=== PATIENT | female | born 1975 | race Hispanic/Latino ===

== ENCOUNTER 2025-01-28 20:33 | Emergency (ER) | payer SELFPAY ==
[~2025-01-28] VITALS: Ht 165.1 cm; Wt 129.3 kg
--- NOTE | 2025-01-28 21:06 | ERN ---
ED Note History of Present Illness Stated Complaint: BURNING URINATION Chief Complaint: Urinary Frequency Time Seen by MD: 20:36 Time Seen by Midlevel: 20:36 Dictation: The patient is a 44-year-old female with a history of osteoarthritis, anxiety, schizophrenia who presents to the emergency department with complaints of burning urination and frequent urination associated with right flank pain onset 2-3 weeks ago. Patient denies any nausea vomiting or diarrhea. Denies any blood in the urine. Denies any fevers. Allergies: Coded Allergies: ofloxacin (Unverified Allergy, Unknown, 01/28/25) Past Medical History Past Medical History: Anxiety, Bipolar, Schizophrenia Surgical History: None RN Note Reviewed/Agreed w/PFSH: Yes Review of System Dictation Constitutional: Negative for fever,chills, and weight loss Eyes: Negative for injury, pain,redness, and discharge ENT: Negative for injury,pain or swelling Cardiovascular: Negative for chest pain, palpitations, and edema Respiratory: Negative for shortness of breath, cough, and wheezing, Abdomen/GI: Negative for abdominal pain, nausea, vomiting, diarrhea, and constipation Back: Negative for injury and pain : Negative for injury, bleeding and discharge positive for right flank pain, burning urination MS/Extremity: Negative for injury and deformity Skin: Negative for rash, and discoloration Neuro: Negative for headache, weakness, numbness, tingling, and seizure Psych: Negative for suicide ideation, homicidal ideation, and hallucinations Initial Vital Sign VS Vital Signs Date Time Temp Pulse Resp B/P (MAP) Pulse Ox O2 Delivery O2 Flow Rate FiO2 01/28/25 20:35 99.9 101 19 156/87 95 Room Air 0 01/28/25 22:51 21 Physical Exam Dictation Vital Signs reviewed General Appearance: Alert, oriented x 3, no acute distress, well developed, nourished. Head and Face: non-traumatic. Eyes: PERRL, pink conjunctivas, eyelid no trauma, anterior chamber with arcus senilis. Ears: Pinnas intact and no signs of trauma or erythema ear canals clear and no discharge TM no erythema Nose: No discharge, no bleeding. Oropharynx: Mouth normal, tongue pink. pharynx clear,no erythema, tonsils no exudates, no abscesses noted, mucous membrane moist Neck: Supple, non-tender, no thyromegaly, no masses, no JVD, no bruits Breast:Deferred Chest:No tenderness, no crepitus, no paradoxical movement, no retractions Lungs:Clear, well-ventilated, symmetric, no rales, no wheezing, no rhonchi, no stridor, good breath sounds bilaterally Heart: Regular rate, regular rhythm, no murmur, no gallops Vascular: no peripheral edema, Abdomen: Soft, positive bowel sounds, nondistended, no guarding, nontender, no rebound, no masses no hepatomegaly, no splenomegaly, no Jenkins's sign, no hernias. Rectal: Deferred Genital: Deferred Neurological: Normal speech, motor function intact, sensory function intact Musculoskeletal: Neck nontender, full range of motion, back nontender, full range of motion, Extremities: nontender, full range of motion Skin: Color pink, dry, no turgor, no rash, no lacerations, no abrasions, no contusions. Lymphatic: Deferred Results (Laboratory/Radiology) Laboratory/Radiology Laboratory Tests Test 01/28/25 20:56 01/28/25 21:00 White Blood Count 10.7 K/uL (4.8-10.8) Red Blood Count 4.17 MIL/uL (4.00-5.50) Hemoglobin 12.4 g/dL (12.0-16.0) Hematocrit 38.2 % (36-48) Mean Corpuscular Volume 91.6 fL (79-99) Mean Corpuscular Hemoglobin 29.7 pg (27.0-33.0) Mean Corpuscular Hemoglobin Concent 32.5 g/dL (32.0-36.0) Red Cell Distribution Width 13.9 % (11.0-15.5) Platelet Count 385 K/uL (130-400) Mean Platelet Volume 9.7 fL (7.5-10.5) Immature Granulocyte % (Auto) 0.5 % (0-1) Neutrophils (%) (Auto) 70.1 % (40.0-77.0) Lymphocytes (%) (Auto) 21.7 % (21.0-51.0) Monocytes (%) (Auto) 5.5 % (3.0-13.0) Eosinophils (%) (Auto) 1.8 % (0.0-8.0) Basophils (%) (Auto) 0.4 % (0.0-5.0) Neutrophils # (Auto) 7.5 K/uL (1.8-7.7) Lymphocytes # (Auto) 2.3 K/uL (1.0-4.8) Monocytes # (Auto) 0.6 K/uL (0.1-1.0) Eosinophils # (Auto) 0.19 K/uL (0.00-0.70) Basophils # (Auto) 0.04 K/uL (0.00-0.20) Absolute Immature Granulocyte (auto 0.05 K/uL (0-1) Nucleated Red Blood Cells 0.0 % (0.0-0.19) Sodium Level 135 mmol/L (136-145) L Potassium Level 3.8 mmol/L (3.5-5.1) Chloride Level 98 mmol/L (101-111) L Carbon Dioxide Level 26 mmol/L (21-32) Blood Urea Nitrogen 15 mg/dL (7-18) Creatinine 1.4 mg/dL (0.5-1.0) H Glomerular Filtration Rate Calc 47 mL/min (>90) Random Glucose 112 mg/dL (70-105) H Total Calcium 9.4 mg/dL (8.5-10.1) Urine Color COLORLESS (YELLOW) Urine Appearance CLEAR (CLEAR) Urine pH 6.0 (5.0-8.0) Urine Specific [place]ansom 1.004 (1.001-1.031) Urine Protein NEGATIVE mg/dL (NEGATIVE) Urine Glucose (UA) NEGATIVE mg/dL (NEGATIVE) Urine Ketones NEGATIVE mg/dL (NEGATIVE) Urine Occult Blood +- (TRACE) (NEGATIVE) H Urine Nitrate NEGATIVE (NEGATIVE) Urine Bilirubin NEGATIVE mg/dL (NEGATIVE) Urine Urobilinogen 0.2 mg/dL (0.2-1.0) Urine Leukocyte Esterase 75 Mike/uL (NEGATIVE) H Urine RBC 0-1 /HPF (0-1) Urine WBC 11-25 /HPF (0-1) H Urine Squamous Epithelial Cells RARE /HPF (0-2) Urine Bacteria None /HPF (None Seen) Urine HCG, Qualitative NEGATIVE (NEGATIVE) Labs Reviewed?: Yes ED Course ED Course Orders Procedure Category Date Status Time Cbc With Differential LAB 01/28/25 Complete 20:46 ,Urine Test LAB 01/28/25 Complete 20:46 Urinalysis Profile LAB 01/28/25 Complete 20:46 0.9%Nacl 1000ml (Ns PHA 01/28/25 Complete 1000ml) 21:00 Ketorolac PHA 01/28/25 Complete Tromethamine 30mg/Ml 21:00 Basic Metabolic Panel LAB 01/28/25 Complete 20:46 Ct Abdomen/Pelvis W/O CT 01/28/25 Taken Contrast 21:30 Culture Urine CASH 01/28/25 In Process 21:35 Ceftriaxone 1g Vial PHA 01/28/25 Complete (Rocephine 1g Inj) 22:00 Current Medications Medications (Trade) Dose Ordered Sig/Kenneth Route PRN Reason Start Time Stop Time Status Last Admin Dose Admin Ceftriaxone Sodium (ROCEphine 1G INJ) 1 gm ONCE ONCE IVPB 01/28/25 22:00 01/28/25 22:01 DC 01/28/25 21:45 Ketorolac Tromethamine (toRADol) 30 mg ONCE IVP 01/28/25 21:00 01/28/25 23:59 DC 01/28/25 21:13 Sodium Chloride 1,000 ml @ 0 mls/hr ONCE IV 01/28/25 21:00 01/28/25 23:59 DC 01/28/25 21:13 Vital Signs Date Time Temp Pulse Resp B/P (MAP) Pulse Ox O2 Delivery O2 Flow Rate FiO2 01/28/25 22:51 83 17 94/54 96 Room Air* 0 21 01/28/25 20:35 99.9 101 19 156/87 95 Room Air 0 Medical Decision Making MDM The patient is a 44-year-old female with a history of osteoarthritis, anxiety, schizophrenia who presents to the emergency department with complaints of burning urination and frequent urination associated with right flank pain onset 2-3 weeks ago. Patient denies any nausea vomiting or diarrhea. Denies any blood in the urine. Denies any fevers. CBC showed no leukocytosis, no anemia, chemistry showed mild hypochloremia, hyponatremia, creatinine of 1.4, unknown baseline. Urinalysis showed positive leukocyte esterase. Patient was giving a L of fluids in a g of Rocephin in ER. Due to patient having right flank pain patient received a CT abdomen and pelvis to rule out kidney stones. Pending CT to be read. Patient reported that she did not want to wait for CT results because she needed to leave to work in the morning. Patient left AMA. Patient has signed AMA form. Risks and benefits discussed with the patient. Differential diagnosis: UTI, pyelonephritis, dehydration, electrolyte imbalance DX & DISP Disposition: AMA Departure Condition: Stable Scripts Sulfamethoxazole/Trimethoprim (Bactrim Ds Tablet) 800 Mg-160 Mg Tablet 1 TAB PO BID for 7 Days, #14 TAB 0 Refills Prov: JALEN GONZALEZ 01/29/25 Referrals: SELF,REFERRAL (PCP) Time of Disposition: 00:10 I have reviewed the case, and I agree with, Diagnosis and Plan JALEN GONZALEZ Jan 28, 2025 21:06
[2025-01-28] MEDS: 0.9%NACL 1000ML 1,000 ML IV SCH (21:13)
[2025-01-28] MEDS: ketOROlac 30MG VIAL (30MG/ML) IVP SCH (21:13)
[2025-01-28 21:25] LABS: BASOPHILS # (AUTO) 0.04 K/uL (0.00-0.20); BASOPHILS % (AUTO) 0.4 % (0.0-5.0); EOSINOPHILS # (AUTO) 0.19 K/uL (0.00-0.70); EOSINOPHILS % (AUTO) 1.8 % (0.0-8.0); HEMATOCRIT 38.2 % (36-48); IMMATURE GRANULOCYTE ABSOLUTE 0.05 K/uL (0-1); LYMPHOCYTES # (AUTO) 2.3 K/uL (1.0-4.8); LYMPHOCYTES % (AUTO) 21.7 % (21.0-51.0); MEAN CORPUSCULAR HEMOGLOBIN 29.7 pg (27.0-33.0); MEAN CORPUSCULAR HGB CONC 32.5 g/dL (32.0-36.0); MEAN CORPUSCULAR VOLUME 91.6 fL (79-99); MONOCYTES # (AUTO) 0.6 K/uL (0.1-1.0); MONOCYTES % (AUTO) 5.5 % (3.0-13.0); NEUTROPHILS # (AUTO) 7.5 K/uL (1.8-7.7); NEUTROPHILS % (AUTO) 70.1 % (40.0-77.0); PLATELET COUNT (AUTO) 385 K/uL (130-400); RED BLOOD CELL COUNT(AUTO) 4.17 MIL/uL (4.00-5.50); RED CELL DISTRIBUTION WIDTH 13.9 % (11.0-15.5); WHITE BLOOD COUNT (AUTO) 10.7 K/uL (4.8-10.8)
[2025-01-28 21:28] LABS: APPEARANCE,URINE CLEAR (CLEAR); BILIRUBIN,URINE NEGATIVE (NEGATIVE); COLOR,URINE COLORLESS (YELLOW); GLUCOSE, URINE (UA) NEGATIVE (NEGATIVE); KETONES,URINE NEGATIVE (NEGATIVE); NITRATE,URINE NEGATIVE (NEGATIVE); PROTEIN,URINE NEGATIVE (NEGATIVE); UROBILINOGEN,URINE 0.2 mg/dL (0.2-1.0)
[2025-01-28 21:29] LABS: HCG,QUALITATIVE URINE NEGATIVE (NEGATIVE)
[2025-01-28 21:32] LABS: ADD UA MICROSCOPIC YES
[2025-01-28 21:33] LABS: CREATININE 1.4 mg/dL (0.5-1.0); POTASSIUM 3.8 mmol/L (3.5-5.1)
[2025-01-28 21:34] LABS: RBC,URINE 0-1 /HPF (0-1); SQUAMOUS EPITHELIAL CELL,UR RARE /HPF (0-2)
[2025-01-28 21:35] LABS: LEUKOCYTE ESTERASE ,URINE 75 Leu/uL (NEGATIVE)
[2025-01-28] MEDS: cefTRIAXone 1G VIAL IVPB ONE (21:45)
--- NOTE | 2025-01-29 00:09 | NUR ---
PATIENT STATING SHE WANTS TO GO HOME, DOES NOT WANT TO WAIT FOR CT RESULTS DUE TO NEEDING TO BE AT WORK AT 0500. Vito GONZALEZ NP AWARE, ALL RISKS OF LEAVING AMA INCLUDING EXPLAINED TO PATIENT, PATIENT VERBALIZED UNDERSTANDING AND STILL WISHES TO LEAVE AMA. AMA FORM SIGNED AND PLACED ON CHART.
[2025-01-29] MEDS ORDERED: SULF1TAB42 PO (00:10)
[2025-01-29 00:11] VITALS: BP 102/55; PULSE 78; RESP 16; TEMP 98.3; O2SAT 95
--- NOTE | 2025-01-29 00:53 | HMCIMG ---
EXAMINATION: CT Abdomen and Pelvis Without IV Contrast CLINICAL HISTORY: Patient presents with right flank pain. TECHNIQUE: Axial computed tomography images of the abdomen and pelvis without intravenous contrast. CONTRAST: No IV contrast. COMPARISON: None provided. FINDINGS: LUNG BASES: The lung bases are clear. No pleural effusions. LIVER: The liver is enlarged, measuring approximately 21.7 cm, with diffuse hepatic steatosis. GALLBLADDER AND BILE DUCTS: The gallbladder is within normal limits. No radiopaque gallstones. No biliary ductal dilatation. PANCREAS: Unremarkable. SPLEEN: Unremarkable. ADRENAL GLANDS: Unremarkable. KIDNEYS, URETERS, AND BLADDER: The kidneys are within normal limits. No renal or ureteric calculi. No hydronephrosis or hydroureter. There is diffuse thickening of the urinary bladder wall, with a maximum wall thickness of approximately 0.4 cm and minimal perivesical fat stranding, concerning for cystitis. STOMACH AND BOWEL: Unremarkable appearance of the stomach. Occasional colonic diverticula without evidence of diverticulitis. No bowel obstruction or signs of enteritis or colitis. APPENDIX: No evidence of acute appendicitis. PERITONEUM: No free fluid. No free air. LYMPH NODES: No lymphadenopathy. REPRODUCTIVE: The uterus is retroverted and retroflexed. No focal adnexal lesions. There is minimal caudal descent of the urinary bladder neck beyond the pelvic floor by approximately 0.4 cm, concerning for small cystocele. VASCULATURE: No evidence of abdominal aortic aneurysm. ABDOMINAL WALL: Small fat-containing umbilical hernia. BONES: No aggressive-appearing osseous lesion. No acute osseous abnormality. IMPRESSION: Diffuse thickening of the urinary bladder wall with minimal perivesical fat stranding, concerning for cystitis. Minimal caudal descent of the urinary bladder neck, concerning for small cystocele. Diffuse hepatic steatosis with hepatomegaly measuring approximately 21.7 cm. Small fat-containing umbilical hernia. Occasional colonic diverticula without evidence of diverticulitis. /[place]
== END 2025-01-29 00:13 | disposition left against medical advice (07) ==
LOC: EDBD 20:33 → EDH 20:33
DX: R35.0 Frequency of micturition (principal); R30.9 Painful micturition, unspecified; R10.9 Unspecified abdominal pain; F20.9 Schizophrenia, unspecified; F31.9 Bipolar disorder, unspecified; Z88.1 Allergy status to other antibiotic agents
CPT/HCPCS: 99285; 74176; 96374; 96361; 96375; 80048; 85025; 87086 ×2; 87186; 81001; 81025; 36415; J1885; J7030; J0696